=== PATIENT | female | born 1990 | race Caucasian/White ===

== ENCOUNTER 2017-06-30 18:54 | Inpatient (IN) | payer OTHER ==
[~2017-06-30] VITALS: Ht 154.9 cm; Wt 58.9 kg
[~2017-06-30 18:54] MED LIST: CLINDAMYCIN HC300 MG PO; Colace PO; DILAUDID2 MG PO; FERROUS SULFAT325 MG PO; Feosol PO; IBUPROFEN800 MG PO; Methadone PO; Motrin PO; NATALCARE RX1 TABLE1 PO; NOHOMEMEDS; PERCOCET 5/31 TABLET PO; PRENATAL VITAM1 EAC2 PO; Percocet 5/325,Endoc PO
[2017-06-30 19:41] LABS: EOSINOPHIL (%) 1.1 % (0-5); EOSINOPHIL COUNT 0.1 K/uL (0-0.3); IMMATURE GRANULOCYTE (%) 0.3 % (0.0-0.7); INSTRUMENT ABS NEUTROPHIL CT 6.4 K/uL; MCH 30.2 PG (29.0-34.0); MCHC 34.1 G/DL (30.0-36.0); MCV 88.7 FL (83-99); MEAN PLAT.VOLUME 9.5 uM^3 (9.5-12.4); MONOCYTE (%) 6.8 % (3-12); MONOCYTE COUNT 0.6 K/uL (0-0.8); NEUTROPHIL COUNT 6.4 K/uL (1.8-6.4); PLATELET COUNT 215 K/uL (156-360); RBC DIS.WIDTH-CV 11.9 % (11.8-14.6); RBC DIS.WIDTH-SD 38.3 % (39-53); RED BLOOD COUNT 4.17 M/uL (3.80-5.20); WHITE BLOOD COUNT 9.1 K/uL (4.1-10.2)
[2017-06-30 19:49] LABS: CHLORIDE 103 mEq/L (99-109); POTASSIUM 3.7 mEq/L (3.7-5.4); SODIUM 139 mEq/L (136-147)
[2017-06-30 19:52] LABS: GLUCOSE 105 mg/dL (70-99)
[2017-06-30 19:53] LABS: ANION GAP 12 MEQ/L (2-14); TOTAL BILIRUBIN 0.7 mg/dL (0.0-1.0)
[2017-06-30 19:54] LABS: SERUM ETHYL ALCOHOL < 10 mg/dL
[2017-06-30 19:55] LABS: GFR ESTIMATE (CALCULATED) > 59 mL/min/
[2017-06-30 19:56] LABS: ALKALINE PHOSPHATASE 44 IU/L (3-129)
[2017-06-30 19:57] LABS: UREA NITROGEN (BUN) 9 mg/dL (9-23)
[2017-06-30 19:59] LABS: SALICYLATE < 5.0 MG/DL (15-30)
[2017-06-30 20:13] LABS: QUANTITATIVE HCG < 4.0 MIU/ML
[2017-06-30 21:02] LABS: ADD MIUA? YES; BILIRUBIN NEGATIVE; BLOOD NEGATIVE; COLOR STRAW ((YELLOW)); GLUCOSE (STRIP) NEGATIVE; KETONES NEGATIVE; LEUKOCYTES NEGATIVE; NITRITE NEGATIVE; PROTEIN (STRIP) NEGATIVE; SPECIFIC GRAVITY 1.005 (1.000-1.030); UROBILINOGEN 0.2 MG/DL (0.2-1.0)
[2017-06-30 21:04] LABS: BACTERIA NONE SEEN /HPF; EPITHELIAL CELLS 1+ /HPF; MUCUS NONE SEEN /LPF; RED BLOOD CELLS 0-5 /HPF (0-5); UCUL ADDED? NO; WHITE BLOOD CELLS 0-5 /HPF (0-5)
[2017-06-30 21:16] LABS: ADD MEDTOX COMMENT Y; AMPHETAMINE NEGATIVE (500 ng/mL); BARBITURATES NEGATIVE (200 ng/mL); BENZODIAZEPINES PRESUMPTIVE POSITIVE (150 ng/mL); COCAINE NEGATIVE (150 ng/mL); INTERNAL CONTROLS VALID? YES; METHADONE NEGATIVE (200 ng/mL); METHAMPHETAMINE NEGATIVE (500 ng/mL); OPIATES (MORPHINE) NEGATIVE (100 ng/mL); OXYCODONE PRESUMPTIVE POSITIVE (100 ng/mL); PHENCYCLIDINE NEGATIVE (25 ng/mL); PROPOXYPHENE NEGATIVE (300 ng/mL); THC CANNABINOIDS NEGATIVE (50 ng/mL); TRICYCLIC ANTIDEPRESSANTS NEGATIVE (300 ng/mL)
[2017-06-30 21:35] LABS: BENZODIAZEPINES QUANT VALUE 0 NG/ML; BENZODIAZEPINES, URINE SCREEN Negative (200 ng/mL)
[2017-07-01] MEDS ORDERED: SEROPHENE50 MG PO (02:57)
[2017-07-01] MEDS ORDERED: SEROQUEL50 MG PO (02:57)
[2017-07-01] MEDS ORDERED: NEURONTIN300 MG PO (02:58)
[2017-07-01] MEDS ORDERED: BRINTELLIX10 MG PO (02:59)
[2017-07-01] MEDS ORDERED: TRILEPTAL300 MG PO (02:59)
[2017-07-01 07:10] VITALS: BP 116/78
[2017-07-01 15:11] VITALS: BP 111/75
[2017-07-02 07:37] VITALS: BP 117/63
[2017-07-02 15:48] VITALS: BP 114/75
[2017-07-03 07:35] VITALS: BP 114/64
[2017-07-03 15:19] VITALS: BP 116/71
[2017-07-04 07:38] VITALS: BP 105/63
[2017-07-04] MEDS ORDERED: LITHIUM CARBON300 M2 PO ×2 (09:04→09:07)
[2017-07-04] MEDS ORDERED: QUETIAPINE FUM100 MG PO ×2 (09:04→09:07)
[2017-07-04] MEDS ORDERED: GABAPENTIN600 MG PO ×2 (09:04→09:07)
== END 2017-07-04 09:53 | disposition home or self-care (01) | DRG 885 ==
LOC: EME 18:54 → 1WEST 23:04 → EDOF 23:04 → ENRESERV 07-01 02:17 → 1WEST 07-01 02:18
PROVIDERS: Emergency Medicine
DX: F31.9 Bipolar disorder, unspecified (principal); F41.1 Generalized anxiety disorder; F43.10 Post-traumatic stress disorder, unspecified; R45.851 Suicidal ideations; F90.9 Attention-deficit hyperactivity disorder, unspecified type; R45.850 Homicidal ideations; Z87.891 Personal history of nicotine dependence
CPT/HCPCS: 80053; 80178; 81003; 84702; 84999; 85025; 90839; 97166 GO; 99281; 99284; G0480